=== PATIENT | female | born 1940 | race Caucasian/White ===

== ENCOUNTER 2017-12-22 16:05 | Observation (INO) | payer MEDICARE ==
[~2017-12-22] VITALS: Ht 172.7 cm; Wt 53.0 kg
[~2017-12-22 16:05] MED LIST: CEPH-460 PO; LISI10TA3 PO; ZOCO10TA PO
[2017-12-22 16:14] VITALS: BP 158/109; PULSE 85; RESP 18; TEMP 98.6; O2SAT 100
[2017-12-22] MEDS ORDERED: SODIUM CHLORIDE 0.9% FLUSH 10 ML FLUSH IVF PRN (16:15)
[2017-12-22 16:35] VITALS: PULSE 73; RESP 18; O2SAT 99
[2017-12-22] MEDS ORDERED: AMLO5TAB2 PO (16:36)
[2017-12-22] MEDS ORDERED: LIPI40TA PO (16:36)
[2017-12-22] MEDS ORDERED: ANAS1 PO (16:36)
[2017-12-22] MEDS ORDERED: LISI-515 PO (16:36)
[2017-12-22] MEDS ORDERED: HYDR-3366 PO (16:36)
[2017-12-22] MEDS ORDERED: HYDR25TA5 PO (16:40)
[2017-12-22 17:04] LABS: BASOPHIL % 0.4 % (0.0-2.0); HEMOGLOBIN 9.7 GM/DL (11.6-15.3); LYMPH % 48.9 % (9.0-44.0); LYMPHOCYTE # 2.4 TH/MM3 (1.0-4.8); MEAN CELL VOLUME 94.7 FL (80.0-100.0); MEAN CORPUSCULAR HEMOGLOBIN 31.6 PG (27.0-34.0); MEAN CORPUSCULAR HGB CONC 33.4 % (32.0-36.0); MEAN PLATELET VOLUME 8.5 FL (7.0-11.0); MONO % 8.8 % (0.0-8.0); MONOCYTE # 0.4 TH/MM3 (0-0.9); NEUT % 40.9 % (16.0-70.0); PLATELET COUNT 212 TH/MM3 (150-450); RED BLOOD COUNT 3.06 MIL/MM3 (4.00-5.30); RED CELL DISTRIBUTION WIDTH 13.9 % (11.6-17.2); WHITE BLOOD COUNT 4.8 TH/MM3 (4.0-11.0)
[2017-12-22 17:14] LABS: INTERNATIONAL NORMALIZED RATIO 1.1 RATIO; PROTHROMBIN TIME - PATIENT 11.1 SEC (9.8-11.6)
[2017-12-22 17:21] LABS: ALBUMIN 3.1 GM/DL (3.4-5.0); ALT (GPT) 12 U/L (10-53); AST (GOT) 16 U/L (15-37); BICARBONATE 25.5 MEQ/L (21.0-32.0); BLOOD UREA NITROGEN 25 MG/DL (7-18); CALCIUM 8.7 MG/DL (8.5-10.1); CHLORIDE 112 MEQ/L (98-107); CREATININE 1.22 MG/DL (0.50-1.00); GLOMERULAR FILTRATION RATE 43 ML/MIN (>89); GLUCOSE,RANDOM 176 MG/DL (74-106); SODIUM (NA) 144 MEQ/L (136-145)
[2017-12-22 17:23] LABS: ALKALINE PHOSPHATASE 96 U/L (45-117); TOTAL BILIRUBIN ADULT 0.3 MG/DL (0.2-1.0); TOTAL PROTEIN 6.4 GM/DL (6.4-8.2)
[2017-12-22 17:47] LABS: BILIRUBIN, URINE NEG (NEG); BLOOD, URINE NEG (NEG); GLUCOSE,URINE NEG (NEG); HYALINE CAST, URINE 1 /lpf (RARE); KETONE, URINE NEG (NEG); NITRITE,URINE NEG (NEG); URINE COLOR YELLOW (YELLW/STRAW); URINE LEUKOCYTE ESTERASE MOD (NEG)
--- NOTE | 2017-12-22 17:54 | RADRPT ---
EXAM DATE/TIME: 12/22/2017 17:30 [facility] COMPARISON: No previous studies available for comparison. INDICATIONS : Patient fell today from syncopal episode. Complains of left hip pain. MEDICAL HISTORY : None. SURGICAL HISTORY : None. ENCOUNTER: Initial ACUITY: 1 day PAIN SCORE: 7/10 LOCATION: Left Hip FINDINGS: Examination of the left hip was performed with AP Pelvis. The primary and secondary trabecular patte rn of the femoral neck is intact. The hip joint is of normal width without significant sclerosis or bony hypertrophy. The acetabulum is grossly intact. CONCLUSION: Unremarkable examination of the left hip. Meliton Wong MD on December 22, 2017 at 17:51 Board Certified Radiologist. This report was verified electronically.
--- NOTE | 2017-12-22 17:55 | RADRPT ---
EXAM DATE/TIME: 12/22/2017 17:27 [facility] COMPARISON: CHEST SINGLE AP, August 19, 2016, 19:01. INDICATIONS : Syncopal episode. Shortness of breath. MEDICAL HISTORY : None. SURGICAL HISTORY : None. ENCOUNTER: Initial ACUITY: 1 day PAIN SCORE: 0/10 LOCATION: chest FINDINGS: A single view of the chest demonstrates the lungs to be symmetrically aerated without evidence of mas s, infiltrate or effusion. The cardiomediastinal contours are unremarkable. Osseous structures are intact. Mild prostatic calcifications are present in the aorta. CONCLUSION: No acute disease. Bonifacio Vaughn MD on December 22, 2017 at 17:52 Board Certified Radiologist. This report was verified electronically.
--- NOTE | 2017-12-22 18:30 | RADRPT ---
EXAM DATE/TIME: 12/22/2017 17:48 [facility] COMPARISON: CT BRAIN W/O CONTRAST, August 19, 2016, 19:16. INDICATIONS : Syncope RADIATION DOSE: 56.35 CTDIvol (mGy) MEDICAL HISTORY : Hypertension. SURGICAL HISTORY : None. ENCOUNTER: Initial ACUITY: 1 day PAIN SCALE: 0/10 LOCATION: cranial TECHNIQUE: Multiple contiguous axial images were obtained of the head. Using automated exposure control and adj ustment of the mA and/or kV according to patient size, radiation dose was kept as low as reasonably a chievable to obtain optimal diagnostic quality images. DICOM format image data is available electro nically for review and comparison. FINDINGS: CEREBRUM: The ventricles are normal for age. No evidence of midline shift, mass lesion, hemorrhage or acute in farction. No extra-axial fluid collections are seen. POSTERIOR FOSSA: The cerebellum and brainstem are intact. The 4th ventricle is midline. The cerebellopontine angle i s unremarkable. EXTRACRANIAL: The visualized portion of the orbits is intact. SKULL: The calvaria is intact. No evidence of skull fracture. CONCLUSION: Normal examination. Meliton Wong MD on December 22, 2017 at 18:27 Board Certified Radiologist. This report was verified electronically.
--- NOTE | 2017-12-22 18:32 | PD ---
HPI Chief Complaint: Syncope/Near-Syncope Time Seen by Provider: 16:14 Travel History International Travel<30 days: No Contact w/Intl Traveler<30days: No Traveled to known affect area: No History of Present Illness HPI This is a 68-year-old female with a history of newly diagnosed breast cancer, presents here via EMS after she had a syncopal episode. Patient states she was driving her car when she started experiencing severe dizziness and lightheadedness. She states she pulled over in the parking lot and went to get out of the car when she passed out. Report was that she fell on her left hip. Paramedics arrived, they found her to be profoundly hypotensive with a systolic blood pressure in the 70s. The patient appeared to be diaphoretic. The paramedics administered a liter and a half of IV fluid via bolus prior to arrival. When she arrived here blood pressure decreased into the 1 teens systolic. The patient complains of left hip pain. Patient states that she felt the symptoms coming on prior to this happening. No previous history of syncope. PFSH Past Medical History Anxiety: Yes Cardiovascular Problems: Yes (HTN; HIGH CHOLESTEROL) High Cholesterol: Yes Hypertension: Yes Immunizations Current: Yes Menopausal: Yes Tubal Ligation: Yes Social History Alcohol Use: Yes (WINE & OR BEERS SOCIALLY) Tobacco Use: No (QUIT 25 YEARS AGO) Substance Use: No Allergies-Medications (Allergen,Severity, Reaction): Coded Allergies: No Known Allergies (Verified , 08/19/16) Reported Meds & Prescriptions Reported Meds & Active Scripts Active Reported Hydrochlorothiazide 25 Mg Tab 25 Mg PO DAILY Amlodipine (Amlodipine Besylate) 5 Mg Tab 5 Mg PO DAILY Lipitor (Atorvastatin Calcium) 40 Mg Tab 60 Mg PO DAILY [place] (Hydrocodone-Acetaminophen) 10-325 Mg Tab 1 Tab PO Q12HR PRN Arimidex (Anastrozole) 1 Mg Tab 1 Mg PO DAILY Lisinopril 20 Mg Tab 20 Mg PO BID Review of Systems Except as stated in HPI: all other systems reviewed are Neg General / Constitutional: No: Fever, Chills Eyes: No: Blurred Vision HENT: No: Headaches, Neck Pain Cardiovascular: No: Chest Pain or Discomfort, Palpitations, Irregular Rhythm Respiratory: No: Cough, Shortness of Breath Gastrointestinal: No: Nausea, Vomiting, Abdominal Pain Genitourinary: No: Dysuria, Incontinence Musculoskeletal: Positive: Pain, No: Weakness (Left hip area) Neurologic: Positive: Syncope, No: Weakness, Headache, Change in Mentation, Incontinence Physical Exam Narrative GENERAL: Well-developed well-nourished female in no acute respiratory distress. The patient was complaining of being cold. SKIN: Focused skin assessment warm/dry. HEAD: Atraumatic. Normocephalic. EYES: No scleral icterus. No injection or drainage. ENT: No nasal bleeding or discharge. Mucous membranes pink and moist. NECK: Trachea midline. Supple. CARDIOVASCULAR: Regular rate and rhythm. No murmur appreciated. RESPIRATORY: No accessory muscle use. Clear to auscultation. Breath sounds equal bilaterally. GASTROINTESTINAL: Abdomen soft, non-tender, nondistended. MUSCULOSKELETAL: Tenderness palpation left lateral hip area. No obvious deformities. There is no shortening or external rotation noted. No abrasions. NEUROLOGICAL: Awake and alert. No obvious cranial nerve deficits. Motor grossly within normal limits. Normal speech. Data Data Last Documented VS Vital Signs Date Time Temp Pulse Resp B/P (MAP) Pulse Ox O2 Delivery O2 Flow Rate FiO2 12/22/17 19:02 78 16 133/56 (81) 98 Room Air 12/22/17 16:14 98.6 Orders Orders Electrocardiogram (12/22/17 16:15) Complete Blood Count With Diff (12/22/17 16:15) Comprehensive Metabolic Panel (12/22/17 16:15) Prothrombin Time / Inr (Pt) (12/22/17 16:15) Urinalysis - C+S If Indicated (12/22/17 16:15) Chest, Single Ap (12/22/17 16:15) Ct Brain W/O Iv Contrast(Rout) (12/22/17 16:15) Ecg Monitoring (12/22/17 16:15) Iv Access Insert/Monitor (12/22/17 16:15) Oximetry (12/22/17 16:15) Sodium Chloride 0.9% Flush (Ns Flush) (12/22/17 16:15) Hip, Uni(Ap&Lat) W Ap Pelvis (12/22/17 16:15) Place In Observation (12/22/17 ) Code Status (12/22/17 18:33) Vital Signs (Adult) Q4H (12/22/17 18:33) Activity Bed Rest With Brp (12/22/17 18:33) Maintenance Representative / Telemetry COY.Q8H (12/22/17 18:33) Neuro Checks Q4H (12/22/17 18:33) Diet Heart Healthy (12/22/17 Dinner) Sodium Chloride 0.9% Flush (Ns Flush) (12/22/17 18:45) Sodium Chloride 0.9% Flush (Ns Flush) (12/22/17 21:00) Complete Blood Count With Diff (12/23/17 06:00) Basic Metabolic Panel (Bmp) (12/23/17 06:00) Electrocardiogram (12/22/17 ) Echo 2d Comp With Doppler (12/22/17 ) Holter Monitor Recording (12/22/17 ) Us Carotid Arteries Comp Bilat (12/22/17 ) Amlodipine (Norvasc) (12/23/17 09:00) Anastrozole (Arimidex) (12/23/17 09:00) Atorvastatin (Lipitor) (12/23/17 09:00) Lisinopril (Prinivil) (12/22/17 21:00) Acetamin-Hydrocod 325-10 Mg ([place] 10-32 (12/22/17 18:45) Admit Order (Ed Use Only) (12/22/17 19:00) Labs Laboratory Tests Test 12/22/17 16:21 12/22/17 17:20 White Blood Count 4.8 TH/MM3 Red Blood Count 3.06 MIL/MM3 Hemoglobin 9.7 GM/DL Hematocrit 29.0 % Mean Corpuscular Volume 94.7 FL Mean Corpuscular Hemoglobin 31.6 PG Mean Corpuscular Hemoglobin Concent 33.4 % Red Cell Distribution Width 13.9 % Platelet Count 212 TH/MM3 Mean Platelet Volume 8.5 FL Neutrophils (%) (Auto) 40.9 % Lymphocytes (%) (Auto) 48.9 % Monocytes (%) (Auto) 8.8 % Eosinophils (%) (Auto) 1.0 % Basophils (%) (Auto) 0.4 % Neutrophils # (Auto) 2.0 TH/MM3 Lymphocytes # (Auto) 2.4 TH/MM3 Monocytes # (Auto) 0.4 TH/MM3 Eosinophils # (Auto) 0.0 TH/MM3 Basophils # (Auto) 0.0 TH/MM3 CBC Comment DIFF FINAL Differential Comment Prothrombin Time 11.1 SEC Prothromb Time International Ratio 1.1 RATIO Blood Urea Nitrogen 25 MG/DL Creatinine 1.22 MG/DL Random Glucose 176 MG/DL Total Protein 6.4 GM/DL Albumin 3.1 GM/DL Calcium Level 8.7 MG/DL Alkaline Phosphatase 96 U/L Aspartate Amino Transf (AST/SGOT) 16 U/L Alanine Aminotransferase (ALT/SGPT) 12 U/L Total Bilirubin 0.3 MG/DL Sodium Level 144 MEQ/L Potassium Level 3.8 MEQ/L Chloride Level 112 MEQ/L Carbon Dioxide Level 25.5 MEQ/L Anion Gap 7 MEQ/L Estimat Glomerular Filtration Rate 43 ML/MIN Urine Color YELLOW Urine Turbidity CLEAR Urine pH 7.0 Urine Specific [place] 1.013 Urine Protein NEG mg/dL Urine Glucose (UA) NEG mg/dL Urine Ketones NEG mg/dL Urine Occult Blood NEG Urine Nitrite NEG Urine Bilirubin NEG Urine Urobilinogen LESS THAN 2.0 MG/DL Urine Leukocyte Esterase MOD Urine RBC 1 /hpf Urine WBC 4 /hpf Urine Hyaline Casts 1 /lpf Microscopic Urinalysis Comment CULT NOT INDICATED MDM Medical Decision Making Medical Screen Exam Complete: Yes Emergency Medical Condition: Yes Differential Diagnosis Cardiac syncope versus vasovagal syncope versus metabolic derangement Narrative Course 76-year-old female status post syncopal episode. The patient stated that she was feeling dizzy while driving her car. She pulled over in the parking lot of [employer]. She got out of the car and then passed out. Patient denies any previous history. She has no focal neurologic deficits at the time of my examination. EKG shows sinus arrhythmia with a rate of 79. BUN and creatinine are elevated. She has had previous BUN and creatinine that has been elevated in 2016. Patient is also noted to be anemic with a hemoglobin of 9.7. Given her syncope and her blood pressure of 70 in the field, I feel it is prudent to admit her for at least observation. [facility] Diagnosis Primary Impression: Syncope Additional Impressions: Chronic kidney injury Contusion of left hip History of newly diagnosed breast cancer Anemia Admitting Information Admitting Physician Requests: Observation Patient Instructions: General Instructions Departure Forms: Tests/Procedures Les Herndon MD Dec 22, 2017 18:32
[2017-12-22] MEDS ORDERED: ACETAMINOPHEN/HYDROcodone 325 MG/10 MG TAB PO PRN (18:45)
[2017-12-22] MEDS ORDERED: SODIUM CHLORIDE 0.9% FLUSH 10 ML FLUSH IV FLUSH PRN (18:45)
[2017-12-22 19:02] VITALS: BP 133/56; PULSE 78; RESP 16; O2SAT 98
[2017-12-22 20:26] VITALS: BP 142/63; PULSE 83; RESP 16; TEMP 97.9; O2SAT 99
[2017-12-22] MEDS: LISINOPRIL 20 MG TAB PO SCH (20:58)
[2017-12-22] MEDS ORDERED: ANASTROZOLE 1 MG TAB PO SCH (21:00)
[2017-12-22] MEDS: SODIUM CHLORIDE 0.9% FLUSH 10 ML FLUSH IV FLUSH SCH (21:00)
--- NOTE | 2017-12-22 21:09 | RADRPT ---
EXAM DATE/TIME: 12/22/2017 20:54 [facility] COMPARISON: No previous studies available for comparison. INDICATIONS : Syncope. MEDICAL HISTORY : Hypercholesterolemia. Hypertension. Anxiety. SURGICAL HISTORY : Tubal ligation. ENCOUNTER: Initial ACUITY: 1 day PAIN SCORE: 0/10 LOCATION: Bilateral neck PEAK SYSTOLIC VELOCITIES (cm/sec): ICA/CCA RATIO: Right: 1.1 Left: 1.0 ICA: Right: 106 Left: 118 CCA: Right: 96 Left: 123 ECA: Right: 207 Left: 164 VERTEBRAL: Right: 31 antegrade Left: 51 antegrade Elevated flow velocities and ICA/CCA ratios have been found to correlate with increased degrees of vessel stenosis, calculated as percentage of diameter relative to a normal segment of distal ICA/CCA FINDINGS: RIGHT CAROTID: No significant stenosis is visualized. The waveforms are within normal limits. LEFT CAROTID: No significant stenosis is visualized. The waveforms are within normal limits. VERTEBRAL ARTERIES: Antegrade flow is seen in both vertebral arteries. MISCELLANEOUS: None. CONCLUSION: No evidence of flow-limiting carotid stenosis. Meliton Wong MD on December 22, 2017 at 21:06 Board Certified Radiologist. This report was verified electronically.
[2017-12-23] VITALS (7 sets, daily range): BP systolic 93–126; BP diastolic 46–67; PULSE 79–92; RESP 12–17; TEMP 97.8–99.5; O2SAT 96–98
[2017-12-23 07:44] LABS: AUTOMATED NEUTROPHIL # 8.9 TH/MM3 (1.8-7.7); BASOPHIL % 0.2 % (0.0-2.0); HEMATOCRIT 27.9 % (35.0-46.0); HEMOGLOBIN 9.5 GM/DL (11.6-15.3); LYMPH % 10.8 % (9.0-44.0); LYMPHOCYTE # 1.2 TH/MM3 (1.0-4.8); MEAN CELL VOLUME 92.7 FL (80.0-100.0); MEAN CORPUSCULAR HEMOGLOBIN 31.7 PG (27.0-34.0); MEAN CORPUSCULAR HGB CONC 34.1 % (32.0-36.0); MEAN PLATELET VOLUME 8.3 FL (7.0-11.0); MONO % 7.7 % (0.0-8.0); MONOCYTE # 0.8 TH/MM3 (0-0.9); NEUT % 81.3 % (16.0-70.0); PLATELET COUNT 195 TH/MM3 (150-450); RED BLOOD COUNT 3.01 MIL/MM3 (4.00-5.30); RED CELL DISTRIBUTION WIDTH 13.9 % (11.6-17.2)
[2017-12-23 07:53] LABS: BICARBONATE 22.8 MEQ/L (21.0-32.0); CALCIUM 8.4 MG/DL (8.5-10.1); CREATININE 1.1 MG/DL (0.50-1.00)
[2017-12-23] MEDS: LISINOPRIL 20 MG TAB PO SCH (09:00)
[2017-12-23] MEDS ORDERED: amLODIPine BESYLATE 5 MG TAB PO SCH (09:00)
[2017-12-23] MEDS ORDERED: ANASTROZOLE 1 MG TAB PO SCH (09:00)
[2017-12-23] MEDS ORDERED: ATORVASTATIN 20 MG TAB PO SCH (09:00)
--- NOTE | 2017-12-23 09:15 | HHI.HP ---
HPI Service [facility] Primary Care Physician Mik Rose MD Admission Diagnosis syncope, anemia, chronic kidney injury, newly diagnosed breast cance Chief Complaint: syncope Travel History International Travel<30 Days: No Contact w/Intl Traveler <30 Da: No Traveled to Known Affected Are: No History of Present Illness This 76-year-old female patient with past medical history which includes hypertension, hyperlipidemia, anxiety, arthritis, migraine headaches, chronic kidney disease stage III, osteopenia, left breast cancer diagnosed October [address] Cuello. Patient presented to the ER yesterday via EMS after she had a syncopal episode. Patient states she was driving her car when she started seeing black spots and became diaphoretic. She states she pulled over in a parking lot and went to get out of the car when she passed out. Report was that she fell on her left hip. Paramedics arrived, they found her to be profoundly hypotensive with a systolic blood pressure in the 70s. The patient appeared to be diaphoretic. The paramedics administered 1.5 L IV fluid via bolus prior to arrival. When she arrived to the ER blood pressure was in the 1 teens systolic. The patient complains of left hip pain. Patient states that she felt the symptoms coming on prior to this happening. Patient's friends and family at bedside report that patient has had intermitted episodes of dizziness for the past year or so. Patient has lost approximately 50 pounds over the past year. Patient reports that she has not had much of an appetite and has been unable to finish her meals. Patient denies chest pain, fevers, chills, N/V/D/C cough or congestion. Past Family Social History Past Medical History hypertension, hyperlipidemia, anxiety, arthritis, migraine headaches, chronic kidney disease stage III, osteopenia, left breast cancer diagnosed October 2017 Past Surgical History Breast biopsy Renal Lithotripsy Tubal ligation Reported Medications Hydrochlorothiazide 25 Mg Tab 25 Mg PO DAILY Amlodipine (Amlodipine Besylate) 5 Mg Tab 5 Mg PO DAILY Lipitor (Atorvastatin Calcium) 40 Mg Tab 60 Mg PO DAILY [place] (Hydrocodone-Acetaminophen) 10-325 Mg Tab 1 Tab PO Q12HR PRN Arimidex (Anastrozole) 1 Mg Tab 1 Mg PO DAILY Lisinopril 20 Mg Tab 20 Mg PO BID Allergies: Coded Allergies: No Known Allergies (Verified Allergy, Unknown, 12/22/17) Family History Patient has 3 sons (1 Lung Ca) Patient is unaware of other family medical history including mother father and grandparents Social History 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 Ms. Maldonado has never smoked. She drinks occasionally. Physical Exam Vital Signs Vital Signs Date Time Temp Pulse Resp B/P (MAP) Pulse Ox O2 Delivery O2 Flow Rate FiO2 12/23/17 08:36 99.5 82 14 93/46 (62) 98 12/23/17 04:09 98.1 88 17 116/60 (78) 12/23/17 01:14 98.4 92 17 118/58 (78) 98 12/23/17 00:35 89 12/22/17 20:26 97.9 83 16 142/63 (89) 99 12/22/17 19:44 12/22/17 19:02 78 16 133/56 (81) 98 Room Air 12/22/17 16:38 70 18 99 Room Air 12/22/17 16:35 73 18 99 Room Air 12/22/17 16:14 98.6 85 18 158/109 (125) 100 Physical Exam GENERAL: This is a well-nourished, well-developed patient, in no apparent distress. SKIN: No rashes, ecchymoses or lesions. Cool and dry. HEAD: Atraumatic. Normocephalic. No temporal or scalp tenderness. EYES: Pupils equal round and reactive. Extraocular motions intact. No scleral icterus. No injection or drainage. ENT: Nose without bleeding, purulent drainage or septal hematoma. Throat without erythema, tonsillar hypertrophy or exudate. Uvula midline. Airway patent. NECK: Trachea midline. No JVD or lymphadenopathy. Supple, nontender, no meningeal signs. CARDIOVASCULAR: Regular rate and rhythm without murmurs, gallops, or rubs. RESPIRATORY: Clear to auscultation. Breath sounds equal bilaterally. No wheezes , rales, or rhonchi. GASTROINTESTINAL: Abdomen soft, non-tender, nondistended. No hepato-splenomegaly , or palpable masses. No guarding. MUSCULOSKELETAL: Extremities without clubbing, cyanosis, or edema. No joint tenderness, effusion, or edema noted. No calf tenderness. Negative Homans sign bilaterally. NEUROLOGICAL: Awake and alert. Cranial nerves II through XII intact. Motor and sensory grossly within normal limits. Five out of 5 muscle strength in all muscle groups. Normal speech. Laboratory Laboratory Tests Test 12/22/17 16:21 12/22/17 17:20 12/23/17 07:15 White Blood Count 4.8 11.0 Red Blood Count 3.06 3.01 Hemoglobin 9.7 9.5 Hematocrit 29.0 27.9 Mean Corpuscular Volume 94.7 92.7 Mean Corpuscular Hemoglobin 31.6 31.7 Mean Corpuscular Hemoglobin Concent 33.4 34.1 Red Cell Distribution Width 13.9 13.9 Platelet Count 212 195 Mean Platelet Volume 8.5 8.3 Neutrophils (%) (Auto) 40.9 81.3 Lymphocytes (%) (Auto) 48.9 10.8 Monocytes (%) (Auto) 8.8 7.7 Eosinophils (%) (Auto) 1.0 0.0 Basophils (%) (Auto) 0.4 0.2 Neutrophils # (Auto) 2.0 8.9 Lymphocytes # (Auto) 2.4 1.2 Monocytes # (Auto) 0.4 0.8 Eosinophils # (Auto) 0.0 0.0 Basophils # (Auto) 0.0 0.0 CBC Comment DIFF FINAL DIFF FINAL Differential Comment Prothrombin Time 11.1 Prothromb Time International Ratio 1.1 Blood Urea Nitrogen 25 24 Creatinine 1.22 1.10 Random Glucose 176 92 Total Protein 6.4 Albumin 3.1 Calcium Level 8.7 8.4 Alkaline Phosphatase 96 Aspartate Amino Transf (AST/SGOT) 16 Alanine Aminotransferase (ALT/SGPT) 12 Total Bilirubin 0.3 Sodium Level 144 141 Potassium Level 3.8 3.3 Chloride Level 112 109 Carbon Dioxide Level 25.5 22.8 Anion Gap 7 9 Estimat Glomerular Filtration Rate 43 48 Urine Color YELLOW Urine Turbidity CLEAR Urine pH 7.0 Urine Specific [place] 1.013 Urine Protein NEG Urine Glucose (UA) NEG Urine Ketones NEG Urine Occult Blood NEG Urine Nitrite NEG Urine Bilirubin NEG Urine Urobilinogen LESS THAN 2.0 Urine Leukocyte Esterase MOD Urine RBC 1 Urine WBC 4 Urine Hyaline Casts 1 Microscopic Urinalysis Comment CULT NOT INDICATED Result Diagram: 12/23/17 0715 12/23/17 0715 Imaging Last Impressions Hip and Pelvis X-Ray 12/22/17 1615 Signed Impressions: Service Date/Time: Friday, December 22, 2017 17:30 - CONCLUSION: Unremarkable examination of the left hip. Meliton Wong MD Head CT 12/22/17 1615 Signed Impressions: Service Date/Time: Friday, December 22, 2017 17:48 - CONCLUSION: Normal examination. Meliton Wong MD Chest X-Ray 12/22/17 1615 Signed Impressions: Service Date/Time: Friday, December 22, 2017 17:27 - CONCLUSION: No acute disease. Bonifacio Vaughn MD Carotid Artery Ultrasound 12/22/17 0000 Signed Impressions: Service Date/Time: Friday, December 22, 2017 20:54 - CONCLUSION: No evidence of flow-limiting carotid stenosis. MD Carolina Mccormack VTE Risk Assessment Caprini VTE Risk Assessment: No/Low Risk (score <= 1) Caprini Risk Assessment Model Point Value = 1 Point Value = 2 Point Value = 3 Point Value = 5 Age 41-60 Minor surgery BMI > 25 kg/m2 Swollen legs Varicose veins or History of unexplained or recurrent spontaneous Oral contraceptives or hormone replacement Sepsis (< 1 month) Serious lung disease, including pneumonia (< 1 month) Abnormal pulmonary function Acute myocardial infarction Congestive heart failure (< 1 month) History of inflammatory bowel disease Medical patient at bed rest Age 61-74 Arthroscopic surgery Major open surgery (> 45 min) Laparoscopic surgery (> 45 min) Malignancy Confined to bed (> 72 hours) Immobilizing plaster cast Central venous access Age >= 75 History of VTE Family history of VTE Factor V Leiden Prothrombin [id number] Lupus anticoagulant Anticardiolipin antibodies Elevated serum homocysteine Heparin-induced thrombocytopenia Other congenital or acquired thrombophilia Stroke (< 1 month) Elective arthroplasty Hip, pelvis, or leg fracture Acute spinal cord injury (< 1 month) Prophylaxis Regimen Total Risk Factor Score Risk Level Prophylaxis Regimen 0-1 Low Early ambulation 2 Moderate Order ONE of the following: *Sequential Compression Device (SCD) *Heparin 5000 units SQ BID 3-4 Higher Order ONE of the following medications: *Heparin 5000 units SQ TID *Enoxaparin/Lovenox 40 mg SQ daily (WT < 150 kg, CrCl > 30 mL/min) *Enoxaparin/Lovenox 30 mg SQ daily (WT < 150 kg, CrCl > 10-29 mL/min) *Enoxaparin/Lovenox 30 mg SQ BID (WT < 150 kg, CrCl > 30 mL/min) AND/OR *Sequential Compression Device (SCD) 5 or more Highest Order ONE of the following medications: *Heparin 5000 units SQ TID (Preferred with Epidurals) *Enoxaparin/Lovenox 40 mg SQ daily (WT < 150 kg, CrCl > 30 mL/min) *Enoxaparin/Lovenox 30 mg SQ daily (WT < 150 kg, CrCl > 10-29 mL/min) *Enoxaparin/Lovenox 30 mg SQ BID (WT < 150 kg, CrCl > 30 mL/min) AND *Sequential Compression Device (SCD) Assessment and Plan Problem List: (1) Syncope ICD Codes: R55 - Syncope and collapse Status: Acute Plan: Syncopal episode with associated dizziness no reports of loss of bowel or bladder control, no tongue biting - Carotid US reviewed and reveals: No evidence of flow-limiting carotid stenosis - Head CT reviewed: Normal exam - Telemetry reviewed - holter monitor, in process - 2-d echocardiogram not yet done, patient to follow up with [facility] cardiology for outpatient echocardiogram - orthostatic vital signs reviewed negative for orthostatic hypotension Believe patient's syncopal episode was secondary to hypotension from overmedication as patient has lost 50 pounds in the past year. Will DC HCTZ, Lisinopril and amlodipine encourage boost/ensure type supplement with each meal and before bed DC patient home with [facility] in stable condition with instructions to follow up with PCP in 1 week, oncology in 1 week and [facility] cardiology in 2-3 days for outpatient echocardiogram DC HCTZ, Lisinopril and amlodipine. (2) Contusion of left hip ICD Codes: S70.02XA - Contusion of left hip, initial encounter Status: Acute Plan: - X ray left hip/pelvic reviewed: Normal exam - Saxon as needed for pain - supportive care Assessment and Plan Patient examined. Assessment and plan formulated with Lolis RUANO I agree with the above. Lolis Perez Dec 23, 2017 09:15 Dg Pressley DO Dec 28, 2017 11:07
[2017-12-23] MEDS: SODIUM CHLORIDE 0.9% FLUSH 10 ML FLUSH IV FLUSH SCH (09:51)
[2017-12-23] MEDS ORDERED: POTASSIUM CHLORIDE 20 MEQ CONTROLLED RELEASE TAB PO ONE (12:30)
--- NOTE | 2017-12-23 12:50 | HHI.DCPOC ---
Discharge Care Plan Diagnosis: (1) Hypotension (2) Syncope Goals to Promote Your Health * To prevent worsening of your condition and complications * To maintain your health at the optimal level Directions to Meet Your Goals Take your medications as prescribed Follow your dietary instruction Follow activity as directed Keep your appointments as scheduled Take your immunizations and boosters as scheduled If your symptoms worsen call your PCP, if no PCP go to Urgent Care Center or Emergency Room Smoking is Dangerous to Your Health. Avoid second hand smoke Call the 24-hour hour crisis hotline for domestic abuse at Lolis Perez Dec 23, 2017 12:50 Dg Pressley DO Dec 23, 2017 12:52
--- NOTE | 2017-12-23 12:52 | HHI.FF ---
Face to Face Verification Diagnosis: (1) Hypotension (2) Contusion of left hip (3) Syncope (4) Fall Physical Therapy Order: Evaluate and Treat, Improve ambulation, Strength and gait training Home Health Nursing Order: Medical education Signs/symptoms of disease process Medication education-adverse effect Nursing assessment with vital signs Instructions: Please assist pt in recording daily blood pressure log to present to her PCP, Dr. Mik Rose. I have seen patient Lucero Maldonado on 12/23/17. My clinical findings support the need for the requested home health care services because: Ltd mobility - disease progression Deconditioned w/ increased weakness Med compliance is questionable Limited ability to care for self Need for psychosocial assistance I certify that my clinical findings support that this patient is homebound because: Impaired cognitive ability/safety Unsafe to leave home unassisted Need for psychosocial assistance Unable to use public transportation Dg Pressley DO Dec 23, 2017 12:52
--- NOTE | 2017-12-23 14:34 | EKG ---
Date Performed: 12/22/2017 Time Performed: 16:18:43 PTAGE: 76 years EKG: Sinus rhythm WITH MARKED SINUS ARRHYTHMIA BORDERLINE ECG Since PREVIOUS TRACING , no significant change noted PREVIOUS TRACIN08/19/2016 19.43 DOCTOR: Jamil Paredes Interpretating Date/Time 12/23/2017 14:33:10
--- NOTE | 2017-12-26 16:26 | HM ---
Date Performed: 12/22/2017 Time Performed: 21:28:00 HOOKUP DATE: 12/22/17 09:28:00 PM Fri ANALYSIS START TIME: 12/22/2017 9:33:00 PM ANALYSIS END TIME: 12/23/2017 5:01:26 PM PATIENT AGE: 76 PATIENT HEIGHT: 68 PATIENT WEIGHT: 116 DRUG LIST: ROOM # [id number] PATIENT DIAGNOSIS: NAUSEA/EVAC TEST NARRATIVE: The patient's average heart rate was 87 BPM. Heart rates greater than 120 B PM were noted < 1% of the time. No episodes of bradycardia were noted. No pauses exceeding 2.0 s econds were noted. 8 ventricular ectopics, which represented < 1% of the total beat count, were n oted. The highest ventricular ectopic frequency occurred from 11:00 AM to 12:00 PM Sat. During this time 3 VE(s) occurred. Ventricular ectopics were observed as 8 isolated beat(s) only. No couplets or runs were noted. 29 supraventricular ectopics, which represented < 1% of the total beat count, were noted. The highest supraventricular ectopic frequency occurred from 02:00 PM to 03:00 PM Sat. During this time 8 SVE(s) occurred. No episodes of ST depression (defined as -1.0 mm or more) we re noted in channel 1. No episodes of ST depression (defined as -1.0 mm or more) were noted in chann el 2. No episodes of ST depression (defined as -1.0 mm or more) were noted in channel 3. NO DIARY RE TURNED TEST INTERPRETATION: Several runs of paroxysmal supraventricular tachycardia were noted with a r ate of up to 188 beats per minute. These were brief durations, and clinical correlation is recommende d. Signed by : Mik Be
== END 2017-12-23 14:23 | disposition home or self-care (01) ==
LOC: NEPE 16:05 → NEDA 19:02 → NEPHCDU 19:54
PROVIDERS: ADMIT Hospitalist; ATTEND Hospitalist
DX: I95.9 Hypotension, unspecified (principal); R55 Syncope and collapse; S70.02XA Contusion of left hip, initial encounter; E78.00 Pure hypercholesterolemia, unspecified; W19.XXXA Unspecified fall, initial encounter; Y92.481 Parking lot as the place of occurrence of the external cause; D64.9 Anemia, unspecified; C50.912 Malignant neoplasm of unspecified site of left female breast; N18.3 Chronic kidney disease, stage 3 (moderate); I12.9 Hypertensive chronic kidney disease with stage 1 through stage 4 chronic kidney disease, or unspecified chronic kidney disease; E78.5 Hyperlipidemia, unspecified; M85.80 Other specified disorders of bone density and structure, unspecified site; G43.909 Migraine, unspecified, not intractable, without status migrainosus
CPT/HCPCS: 70450; 71045; 73502; 80048; 80053; 81001; 85025; 85610; 93005; 93225; 93226; 93880; 99285; G0378